=== PATIENT | male | born 1970 | race American Indian/Alaskan Native ===

== ENCOUNTER 2019-09-28 11:44 | Emergency (ER) | payer SELFPAY ==
[2019-09-28 12:47] VITALS: BP 143/77
--- NOTE | 2019-09-28 12:55 | Emergency Department Report ---
Chief Complaint: Medical Clearance Stated Complaint: FACIAL PAIN Time Seen by Provider: 09/28/19 12:51 - HPI History of Present Illness: 49 y/o male p/w non traumatic facial pain and swelling his oral surgeon has ordered an outpatient ct facial bones he came here for expedited ct at the instruction of his oral surgeon this is not an emergency medical condition, however patient opts to move forward with ct. extensive discussion for financial considerations discussed risks of radiation discussed no cranial nerve defects noted Vital Signs 09/28/19 12:44 Temperature 97.9 F Pulse Rate 99 H Respiratory 16 Rate Blood Pressure 143/77 O2 Sat by Pulse 95 Oximetry - Exam Vital Signs: Vital Signs 09/28/19 12:44 Temperature 97.9 F Pulse Rate 99 H Respiratory 16 Rate Blood Pressure 143/77 O2 Sat by Pulse 95 Oximetry MSE screening note: Focused history and physical exam performed. Due to findings the following was ordered: ED Disposition for MSE Clinical Impression: Encounter for medical screening examination Disposition: Z-01 MED SCREENING EXAM-CONT Is pt being admited?: No Does the pt Need Aspirin: No Condition: Stable
--- NOTE | 2019-09-28 14:12 | Cat Scan Report ---
CT FACE HISTORY: Facial pain; pain between between the nose and lips COMPARISON: MRI scan from 09/23/2014 TECHNIQUE: Axial images of the face were obtained. Coronal and sagittal reformats were generated.All CT scans at this location are performed using CT dose reduction for ALARA by means of automated expo sure control CONTRAST: None. FINDINGS: Approximately 18 mm sized expansile lesion is seen in the hard palate in the midline. Margins are rel atively sharp. 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 In the MRI scan obtain ed in 2014, this cyst measured approximately 13 mm in size. Adjacent inflammatory changes are seen. Since the margins of this lytic lesion is sclerotic and sharply defined, it is less likely to be a me tastatic lesion. Adjacent teeth are intact. Facial bones: No other lesion is seen in the facial bones. Paranasal sinuses: Clear. Median nasal septum is deviating towards the left side. Orbits: No significant abnormality. Visualized images of the intracranial space: No significant abnormality. Additional findings: None. IMPRESSION: 1. 18 mm sized expansile lesion in the hard palate consistent with nasal palatine duct cyst; it kaufman s slightly increased in size since 2014; adjacent inflammatory changes Signer Name: Param Frankel MD Signed: 09/28/2019 2:08 PM Workstation Name: [id number]
--- NOTE | 2019-09-28 14:38 | Emergency Department Report ---
ED ENT HPI - General Chief complaint: Medical Clearance Stated complaint: FACIAL PAIN Time Seen by Provider: 09/28/19 12:51 Source: patient Mode of arrival: Ambulatory Limitations: No Limitations - History of Present Illness Initial comments: This is a 49-year-old male nontoxic, well nourished in appearance, no acute signs of distress presents to the ED with c/o of left frontal upper palate minor swelling. Patient was sent by his oral maxillary surgeon for a CT scan. Patient otherwise denies any dental pain. Patient stated swelling has been increasing since 2011. Patient otherwise denies any head trauma. Patient denies any facial cellulitis. Patient denies any numbness, tingling, fever, chills, headache, stiff neck, abdominal pain, chest pain, shortness of breath. Patient stated allergies to azithromycin with no significant past medical history. besides diabetes and hypertension. -: year(s) 1 - Slight swelling here Severity: mild Severity scale (0 -10): 0 Consistency: constant Improves with: none Worsens with: none Associated Symptoms: gum swelling. denies: fever, cough, toothache, pain with swallowing, sore throat, tinnitus, hearing loss, discharge from ear, rhinorrhea - Related Data Home Medications Medication Instructions Recorded Confirmed Last Taken Albuterol Sulfate [Ventolin HFA] 2 puff IH Q4H PRN 09/22/14 04/09/18 Unknown Previous Rx's Medication Instructions Recorded Last Taken Type Rosuvastatin (Nf) [Crestor] 20 mg PO QHS #30 tablet 09/23/14 Unknown Rx Acetaminophen [Acetaminophen TAB] 650 mg PO Q4H PRN #20 tablet 04/09/18 Unknown Rx Folic Acid [Folvite] 1 mg PO QDAY #30 tablet 04/09/18 Unknown Rx Meclizine [Antivert] 25 mg PO Q8H PRN #30 tablet 04/09/18 Unknown Rx Allergies Allergy/AdvReac Type Severity Reaction Status Date / Time azithromycin Allergy Vomiting Verified 09/22/14 19:15 ED Dental HPI - General Chief complaint: Medical Clearance Stated complaint: FACIAL PAIN Time Seen by Provider: 09/28/19 12:51 Source: patient Mode of arrival: Ambulatory Limitations: No Limitations - Related Data Home Medications Medication Instructions Recorded Confirmed Last Taken Albuterol Sulfate [Ventolin HFA] 2 puff IH Q4H PRN 09/22/14 04/09/18 Unknown Previous Rx's Medication Instructions Recorded Last Taken Type Rosuvastatin (Nf) [Crestor] 20 mg PO QHS #30 tablet 09/23/14 Unknown Rx Acetaminophen [Acetaminophen TAB] 650 mg PO Q4H PRN #20 tablet 04/09/18 Unknown Rx Folic Acid [Folvite] 1 mg PO QDAY #30 tablet 04/09/18 Unknown Rx Meclizine [Antivert] 25 mg PO Q8H PRN #30 tablet 04/09/18 Unknown Rx Allergies Allergy/AdvReac Type Severity Reaction Status Date / Time azithromycin Allergy Vomiting Verified 09/22/14 19:15 ED Review of Systems ROS: Stated complaint: FACIAL PAIN Other details as noted in HPI Constitutional: denies: chills, fever Eyes: denies: eye pain, eye discharge, vision change ENT: denies: ear pain, throat pain Respiratory: denies: cough, shortness of breath, wheezing Cardiovascular: denies: chest pain, palpitations Endocrine: no symptoms reported Gastrointestinal: denies: abdominal pain, nausea, diarrhea Genitourinary: denies: urgency, dysuria Musculoskeletal: denies: back pain, joint swelling, arthralgia Skin: denies: rash, lesions Neurological: denies: headache, weakness, paresthesias Psychiatric: denies: anxiety, depression Hematological/Lymphatic: denies: easy bleeding, easy bruising ED Past Medical Hx - Past Medical History Previous Medical History?: Yes Hx Hypertension: Yes Hx Diabetes: Yes Hx Asthma: Yes Additional medical history: Pericarditis - Surgical History Past Surgical History?: Yes Additional Surgical History: Back surgery - Social History Smoking Status: Never Smoker Substance Use Type: None - Medications Home Medications: Home Medications Medication Instructions Recorded Confirmed Last Taken Type Albuterol Sulfate [Ventolin HFA] 2 puff IH Q4H PRN 09/22/14 04/09/18 Unknown History Rosuvastatin (Nf) [Crestor] 20 mg PO QHS #30 tablet 09/23/14 04/09/18 Unknown Rx Acetaminophen [Acetaminophen TAB] 650 mg PO Q4H PRN #20 tablet 04/09/18 Unknown Rx Folic Acid [Folvite] 1 mg PO QDAY #30 tablet 04/09/18 Unknown Rx Meclizine [Antivert] 25 mg PO Q8H PRN #30 tablet 04/09/18 Unknown Rx ED Physical Exam - General Limitations: No Limitations General appearance: alert, in no apparent distress - Head Head exam: Present: atraumatic, normocephalic - Expanded ENT Exam Expanded Ear exam: Present: normal external inspection Mouth exam: Present: normal external inspection. Absent: drooling, trismus, m uffled voice Teeth exam: Present: normal inspection, gingival enlargement. Absent: dental caries, fractured tooth #, dental tenderness # 1 - Other (minor swelling to this gingival area.) Throat exam: Positive: normal inspection, other (uvula midline). Negative: tonsillar erythema, tonsillomegaly, tonsillar exudate, R peritonsillar mass, L peritonsillar mass - Neck Neck exam: Present: normal inspection, full ROM. Absent: tenderness, meningismus, lymphadenopathy - Extremities Exam Extremities exam: Present: full ROM - Back Exam Back exam: Present: full ROM - Neurological Exam Neurological exam: Present: alert, oriented X3, normal gait - Psychiatric Psychiatric exam: Present: normal affect, normal mood - Skin Skin exam: Present: warm, dry, intact, normal color. Absent: rash ED Course Vital Signs 09/28/19 12:44 Temperature 97.9 F Pulse Rate 99 H Respiratory 16 Rate Blood Pressure 143/77 O2 Sat by Pulse 95 Oximetry - Reevaluation(s) Reevaluation #1: 09/28/19 14:37 Patient is speaking in full sentences with no signs of distress noted. ED Medical Decision Making - Medical Decision Making This is a 49-year-old male that presents with nasal palatine duct cyst. Patient is stable and was examined by me. A CT scan without contrast has been obtained by Dr. [place] and dictated by radiologist. Upon examination there is no s reyes as noted. Patient received his CT report and was instructed to follow up with his oral maxillary surgeon. At time of discharge, the patient does not seem toxic or ill in appearance. No acute signs of distress noted. Patient agrees to discharge treatment plan of care. No further questions noted by the patient. Critical care attestation.: If time is entered above; I have spent that time in minutes in the direct care of this critically ill patient, excluding procedure time. ED Disposition Clinical Impression: Encounter for medical screening examination, Naso-palatine duct cyst Disposition: Z- MED SCREENING EXAM-CONT Is pt being admited?: No Does the pt Need Aspirin: No Condition: Stable Additional Instructions: Follow-up with your oral maxillary surgeon in 2 days or if symptoms worsen and continue return to emergency room as soon as possible. Referrals: PRIMARY CAREMD [Primary Care Provider] - 3-5 Days LOUISE PASTRANA MD [Staff Physician] - 3-5 Days
== END 2019-09-28 14:59 | disposition home or self-care (01) ==
LOC: ED 11:44
DX: K09.1 Developmental (nonodontogenic) cysts of oral region (principal); I10 Essential (primary) hypertension; E11.9 Type 2 diabetes mellitus without complications; J45.909 Unspecified asthma, uncomplicated; Z98.890 Other specified postprocedural states; Z79.899 Other long term (current) drug therapy; Z88.1 Allergy status to other antibiotic agents
CPT/HCPCS: 70486